=== PATIENT | male | born 1950 | race Caucasian/White ===

== ENCOUNTER 2018-05-11 22:10 | Inpatient (IN) | payer SELFPAY ==
[~2018-05-11] VITALS: Ht 180.3 cm; Wt 86.0 kg
[2018-05-12] MEDS ORDERED: ASPIRIN 81MG TABLET PO ONE (05:45)
[2018-05-12 06:42] LABS: BASOPHILS % 1.2 % (0.0-2.0); CHLORIDE 106 mEq/L (98-107); EOSINOPHILS % 3.2 % (0.0-5.0); HEMATOCRIT. 37.3 % (42.0-52.0); HEMOGLOBIN. 12.6 g/dL (14.0-18.0); LYMPHOCYTES % 17.1 % (20.0-50.0); MEAN CORPUSCULAR HEMOGLOBIN 30.9 pg (28.0-32.0); MEAN CORPUSCULAR VOLUME 91.3 fL (80.0-94.0); MONOCYTES % 11.1 % (2.0-8.0); NEUTROPHILS % 67.4 % (40.0-76.0); PLATELET 247 x1000/uL (130-400); RED BLOOD CELL COUNT 4.08 mill/uL (4.7-6.1); RED CELL DISTRIBUTION WIDTH 12.8 % (11.6-14.6)
[2018-05-12 12:30] VITALS: BP 111/74
[2018-05-12] MEDS ORDERED: IPRATROPIUM/ALBUTEROL 0.5-3(2.5)MG/3ML NEB INH PRN (13:45)
[2018-05-12] MEDS ORDERED: DIPHENHYDRAMINE 50MG/ML VIAL IV PRN (13:45)
[2018-05-12] MEDS ORDERED: ACETAMINOPHEN 325MG TABLET PO PRN (13:45)
[2018-05-12] MEDS ORDERED: GUAIFENESIN 200MG/10ML SUGAR FREE UDC PO PRN (13:45)
[2018-05-12] MEDS ORDERED: CLONIDINE 0.1MG TABLET PO PRN (13:45)
[2018-05-12] MEDS ORDERED: KETOROLAC 30MG/ML VIAL IV PRN (13:45)
[2018-05-12] MEDS ORDERED: ONDANSETRON HCL 4MG/2ML INJ IV PRN (13:45)
[2018-05-12] MEDS: ENOXAPARIN 40MG/0.4ML SYR SUBCUT SCH ×2 (14:00→17:14)
[2018-05-12] MEDS ORDERED: MAGNESIUM HYDROXIDE 400MG/5ML 30ML UDC PO PRN (17:00)
[2018-05-12] MEDS: SODIUM CHLORIDE 0.9% INJ 3ML FLUSH IVF SCH ×2 (17:04→21:45)
[2018-05-12] MEDS: DEXT 5%/0.45% NACL KCL 10MEQ/L 1,000 ML IV NR (17:04)
[2018-05-12] MEDS: DOCUSATE SODIUM 100MG CAPSULE PO SCH (17:12)
[2018-05-12 18:44] LABS: PHENCYCLIDINE URINE SCREEN NEGATIVE (NEGATIVE)
[2018-05-12 18:45] LABS: *AMPHETAMINES SCREEN URINE NEGATIVE (NEGATIVE); *BARBITURATES SCREEN URINE NEGATIVE (NEGATIVE); *BENZODIAZEPINES SCREEN URINE NEGATIVE (NEGATIVE); *COCAINE SCREEN URINE NEGATIVE (NEGATIVE); CANNABINOID URINE SCREEN NEGATIVE (NEGATIVE)
[2018-05-12 18:46] LABS: METHADONE URINE SCREEN NEGATIVE (NEGATIVE); OPIATES URINE SCREEN NEGATIVE (NEGATIVE)
[2018-05-12 20:00] VITALS: BP 99/59
[2018-05-12] MEDS ORDERED: TEMAZEPAM 15MG CAPSULE PO PRN (21:00)
[2018-05-13] VITALS: BP 119/94
[2018-05-13] MEDS: DEXT 5%/0.45% NACL KCL 10MEQ/L 1,000 ML IV NR (03:44)
[2018-05-13] MEDS: SODIUM CHLORIDE 0.9% INJ 3ML FLUSH IVF SCH ×2 (06:02→14:45)
[2018-05-13 08:00] VITALS: BP 110/57
[2018-05-13] MEDS: ENOXAPARIN 40MG/0.4ML SYR SUBCUT SCH (09:00)
[2018-05-13] MEDS: DOCUSATE SODIUM 100MG CAPSULE PO SCH ×3 (09:54→19:00)
[2018-05-13] MEDS: ASPIRIN 81MG EC TABLET PO SCH ×2 (09:54→14:45)
[2018-05-13 10:00] LABS: CHLORIDE 105 mEq/L (98-107)
[2018-05-13 10:02] LABS: EOSINOPHILS % 3.3 % (0.0-5.0); HEMATOCRIT. 37.5 % (42.0-52.0); HEMOGLOBIN. 12.6 g/dL (14.0-18.0); MEAN CORPUSCULAR HEMOGLOBIN 30.7 pg (28.0-32.0); MEAN CORPUSCULAR VOLUME 91.4 fL (80.0-94.0); MEAN PLATELET VOLUME 8.3 fl (7.4-10.4); MONOCYTES % 6.5 % (2.0-8.0); NEUTROPHILS % 75.2 % (40.0-76.0); PLATELET 237 x1000/uL (130-400); RED CELL DISTRIBUTION WIDTH 12.9 % (11.6-14.6)
[2018-05-13 10:08] LABS: HDL CHOLESTEROL 29 mg/dL (40-59)
[2018-05-13 10:11] LABS: LDL CHOLESTEROL 77 mg/dL (5-100)
[2018-05-13] MEDS ORDERED: REGADENOSON 0.4 MG/5 ML IV NR (16:30)
[2018-05-13 20:00] VITALS: BP 105/61
[2018-05-14 04:00] VITALS: BP 113/65
[2018-05-14 06:05] LABS: BASOPHILS % 1.3 % (0.0-2.0); EOSINOPHILS % 3.4 % (0.0-5.0); HEMATOCRIT. 37.6 % (42.0-52.0); HEMOGLOBIN. 12.5 g/dL (14.0-18.0); LYMPHOCYTES % 20.1 % (20.0-50.0); MEAN CORPUSCULAR HEMOGLOBIN 30.4 pg (28.0-32.0); MEAN CORPUSCULAR VOLUME 91.5 fL (80.0-94.0); MEAN PLATELET VOLUME 8.2 fl (7.4-10.4); MONOCYTES % 7.5 % (2.0-8.0); NEUTROPHILS % 67.7 % (40.0-76.0); PLATELET 235 x1000/uL (130-400); RED BLOOD CELL COUNT 4.11 mill/uL (4.7-6.1); RED CELL DISTRIBUTION WIDTH 13.2 % (11.6-14.6)
[2018-05-14 07:37] LABS: CHLORIDE 106 mEq/L (98-107)
== END 2018-05-14 08:40 | disposition left against medical advice (07) | DRG 203 ==
LOC: ER 23:32 → ENRESERV 05-12 11:41 → 5WST 05-12 11:41
PROVIDERS: ADMIT Internal Medicine; ATTEND Internal Medicine
DX: R07.89 Other chest pain (principal); N17.9 Acute kidney failure, unspecified; E86.0 Dehydration; Z53.21 Procedure and treatment not carried out due to patient leaving prior to being seen by health care provider; Z82.49 Family history of ischemic heart disease and other diseases of the circulatory system; Z98.1 Arthrodesis status
CPT/HCPCS: 36415; 71045; 80048; 80061; 80305; 83735; 83880; 84484; 93005; 93970; 96365; 99285; J1650